=== PATIENT | male | born 1955 ===

== ENCOUNTER 2024-01-01 06:37 | Outpatient (CLI) | payer OTHER, SELFPAY ==
--- NOTE | 2024-01-01 06:52 | USCV_ITS ---
Valeriano Putnam Age: 68 Gender: M : 1955 Exam Date: 01/01/2024 06:56 Ordering Phys: Beverly Hollis MD Technologist: MANJIT Exam Location: [facility] [place] Indication: AAA Screening HISTORY: Diameter (cm) AP x Transverse x Length Velocity (cm/s) Waveform Prox Aorta: 1.90 x 1.70 x 43.90 Triphasic Mid Aorta: 1.70 x 2.00 x 86.80 Triphasic Distal Aorta: 1.50 x 1.80 x 64.40 Triphasic Right Iliac Prox: 0.80 x 1.02 x 216.30 Triphasic Left Iliac Prox: 0.98 x 1.09 x 249.70 Triphasic Stent Prox Landing x x Aneurysmal Sac Max x x Lt Lat Sac Dim Rt Lat Sac Dim Stent Dist Landing x x Right Iliac Stent x x Left Iliac Stent x x Right Renal Art Left Renal Art FINDINGS: Comparison: none available. Ectatic abdominal aorta with evidence of atherosclerotic plaque noted. No evidence of abdominal aortic aneurysm. There is evidence of atherosclerotic plaque no significan stenosis in the right common iliac artery. There is evidence of atherosclerotic plaque no significan stenosis in the left common iliac artery. CONCLUSIONS No evidence of abdominal aortic or bilateral iliac aneurysm. Dr. Pretty Bob DO (Electronically Signed) Final Date: 01 January 2024 12:49 S
== END 2024-01-01 06:38 | disposition home or self-care (01) ==
LOC: RAD 06:37
PROVIDERS: Family Provider Family Medicine; PCP Family Medicine; Visit Provider Family Medicine
DX: I77.811 Abdominal aortic ectasia (principal); I70.8 Atherosclerosis of other arteries
CPT/HCPCS: 76706